=== PATIENT | male | born 1970 | race African-American/Black ===

== ENCOUNTER 2022-01-01 11:57 | Inpatient (IN) | payer BC ==
[2022-01-01 12:30] VITALS: BMI 21.4
[2022-01-01] MEDS ORDERED: NICOTINE 10 MG CARTRIDGE (INHALER) IH PRN (14:15)
[2022-01-01] MEDS ORDERED: MAGNESIUM CITRATE 300 ML BOTTLE PO PRN (14:15)
[2022-01-01] MEDS ORDERED: MAGNESIUM HYDROX 2400MG/30ML ORAL SUSPENSION 30 ML CUP PO PRN (14:15)
[2022-01-01] MEDS ORDERED: LOPERAMIDE HCL 2 MG CAPSULE PO PRN (14:15)
[2022-01-01] MEDS ORDERED: guaiFENesin 200 MG/10 ML 10 ML UNIT-DOSE CUPS PO PRN (14:15)
[2022-01-01] MEDS ORDERED: P-EPHED 60MG/TRIPROLIDI 2.5MG TABLET PO PRN (14:15)
[2022-01-01] MEDS ORDERED: MAG HYDROX/AL HYDROX/SIMETH 30 ML UNIT-DOSE CUP PO PRN (14:15)
[2022-01-01] MEDS: PRENATAL VITAMINS W/ FOLIC ACID TABLET (FP) PO SCH (23:02)
[2022-01-01] MEDS: hydrOXYzine PAMOATE 25 MG CAPSULE (FP) PO SCH ×2 (23:03→23:26)
[2022-01-01] MEDS ORDERED: TUBERCULIN PPD 5 TU/0.1ML VIAL ID ONE (23:08)
[2022-01-01] MEDS: THIAMINE HCL 100 MG TABLET (FP) PO SCH (23:26)
[2022-01-01] MEDS: MELATONIN 5 MG TABLETS PO SCH (23:26)
[2022-01-02] MEDS: hydrOXYzine PAMOATE 25 MG CAPSULE (FP) PO SCH (06:47)
[2022-01-02] MEDS: IBUPROFEN 400 MG TABLET (FP) PO PRN (07:53)
[2022-01-02] MEDS: PRENATAL VITAMINS W/ FOLIC ACID TABLET (FP) PO SCH (09:52)
[2022-01-02] MEDS: NICOTINE 7 MG/24 HOURS TOPICAL PATCH TD SCH (09:53)
[2022-01-02 10:51] LABS: HEMATOCRIT 43.3 % (35.4-49); MCH 27.5 pg (25.7-33.7); MCHC 32.3 g/dl (32.0-35.9); MEAN CELL VOLUME 84.9 fl (80-96); MEAN PLT VOLUME 7.6 fl (7.5-11.1); PLATELET COUNT 225 10^3/uL (134-434); RDW 13.8 % (11.9-15.9); WHITE BLOOD COUNT 4.9 K/mm3 (4.0-10.0)
[2022-01-02 11:08] LABS: CALCIUM 9.3 mg/dL (8.5-10.1)
[2022-01-02 11:09] LABS: ALBUMIN 3.5 g/dl (3.4-5.0); BLOOD UREA NITROGEN 9.5 mg/dL (7-18)
[2022-01-02 11:12] LABS: CREATININE 0.9 mg/dL (0.55-1.3)
[2022-01-02 11:13] LABS: BILIRUBIN,TOTAL 1.4 mg/dL (0.2-1)
[2022-01-02 11:14] LABS: TOT PROT 7.1 g/dl (6.4-8.2)
[2022-01-02 13:54] LABS: SYPHILIS W/ RPR CONF NON-REACTIVE (NONREACTIVE)
[2022-01-02 14:32] LABS: EPI CELLS 7 /uL (0-25.1); HYALINE CASTS 11 /uL (0-3.1); URINE APPEARANCE CLEAR; URINE BACTERIA 155 /uL (0-1359); URINE BILIRUBIN 1+ (NEGATIVE); URINE COLOR DK YELLOW; URINE GLUCOSE (UA) NEGATIVE (NEGATIVE); URINE KETONE TRACE (NEGATIVE); URINE LEUK ESTERASE 2+ (NEGATIVE); URINE NITRITE NEGATIVE (NEGATIVE); URINE PROTEIN TRACE (NEGATIVE); URINE RBC 5 /uL (0-23.9); URINE WBC 213 /uL (0-25.8)
[2022-01-02] MEDS: THIAMINE HCL 100 MG TABLET (FP) PO SCH (21:21)
[2022-01-02] MEDS: MELATONIN 5 MG TABLETS PO SCH (21:21)
[2022-01-03] MEDS: NICOTINE 7 MG/24 HOURS TOPICAL PATCH TD SCH (10:04)
[2022-01-03] MEDS: PRENATAL VITAMINS W/ FOLIC ACID TABLET (FP) PO SCH (10:04)
[2022-01-03] MEDS: IBUPROFEN 400 MG TABLET (FP) PO PRN (12:26)
[2022-01-03] MEDS: THIAMINE HCL 100 MG TABLET (FP) PO SCH (21:22)
[2022-01-03] MEDS: MELATONIN 5 MG TABLETS PO SCH (21:22)
[2022-01-04] MEDS: NICOTINE 7 MG/24 HOURS TOPICAL PATCH TD SCH (10:02)
[2022-01-04] MEDS: PRENATAL VITAMINS W/ FOLIC ACID TABLET (FP) PO SCH (10:02)
[2022-01-04] MEDS: LIDOCAINE 5% TOPICAL PATCH TP SCH (10:03)
[2022-01-04] MEDS: LIDOCAINE PATCH REMOVAL MC SCH (21:10)
[2022-01-04] MEDS: MELATONIN 5 MG TABLETS PO SCH (21:10)
[2022-01-04] MEDS: THIAMINE HCL 100 MG TABLET (FP) PO SCH (21:11)
[2022-01-05] MEDS: LIDOCAINE 5% TOPICAL PATCH TP SCH (09:29)
[2022-01-05] MEDS: NICOTINE 7 MG/24 HOURS TOPICAL PATCH TD SCH (09:30)
[2022-01-05] MEDS: PRENATAL VITAMINS W/ FOLIC ACID TABLET (FP) PO SCH (09:30)
[2022-01-05] MEDS: ACETAMINOPHEN 325 MG TABLET (FP) PO PRN (13:26)
[2022-01-05] MEDS: LIDOCAINE PATCH REMOVAL MC SCH (21:20)
[2022-01-05] MEDS: MELATONIN 5 MG TABLETS PO SCH (21:20)
[2022-01-05] MEDS: THIAMINE HCL 100 MG TABLET (FP) PO SCH (21:20)
[2022-01-06] MEDS: PRENATAL VITAMINS W/ FOLIC ACID TABLET (FP) PO SCH (10:12)
[2022-01-06] MEDS: NICOTINE 7 MG/24 HOURS TOPICAL PATCH TD SCH (10:13)
[2022-01-06] MEDS: LIDOCAINE 5% TOPICAL PATCH TP SCH (10:13)
[2022-01-06] MEDS: THIAMINE HCL 100 MG TABLET (FP) PO SCH (21:11)
[2022-01-06] MEDS: MELATONIN 5 MG TABLETS PO SCH (21:11)
[2022-01-06] MEDS: LIDOCAINE PATCH REMOVAL MC SCH (21:11)
[2022-01-07] MEDS: IBUPROFEN 400 MG TABLET (FP) PO PRN ×2 (09:53→18:06)
[2022-01-07] MEDS: PRENATAL VITAMINS W/ FOLIC ACID TABLET (FP) PO SCH (09:53)
[2022-01-07] MEDS: LIDOCAINE 5% TOPICAL PATCH TP SCH (09:53)
[2022-01-07] MEDS: NICOTINE 7 MG/24 HOURS TOPICAL PATCH TD SCH (09:53)
[2022-01-07] MEDS ORDERED: BACLOFEN 10 MG TABLET (FP) PO PRN (15:52)
[2022-01-07] MEDS: LIDOCAINE PATCH REMOVAL MC SCH (21:18)
[2022-01-07] MEDS: METHYL SALICYLATE/MENTHOL OINT 30 GM TUBE TP SCH (21:18)
[2022-01-07] MEDS: MELATONIN 5 MG TABLETS PO SCH (21:19)
[2022-01-07] MEDS: THIAMINE HCL 100 MG TABLET (FP) PO SCH (21:19)
[2022-01-08] MEDS: NICOTINE 7 MG/24 HOURS TOPICAL PATCH TD SCH (09:56)
[2022-01-08] MEDS: PRENATAL VITAMINS W/ FOLIC ACID TABLET (FP) PO SCH (09:56)
[2022-01-08] MEDS: LIDOCAINE 5% TOPICAL PATCH TP SCH (09:56)
[2022-01-08] MEDS: MELATONIN 5 MG TABLETS PO SCH (21:10)
[2022-01-08] MEDS: THIAMINE HCL 100 MG TABLET (FP) PO SCH (21:10)
[2022-01-08] MEDS: LIDOCAINE PATCH REMOVAL MC SCH (21:11)
[2022-01-08] MEDS: METHYL SALICYLATE/MENTHOL OINT 30 GM TUBE TP SCH (21:12)
[2022-01-09] MEDS: BACLOFEN 10 MG TABLET (FP) PO PRN (08:48)
[2022-01-09] MEDS: IBUPROFEN 400 MG TABLET (FP) PO PRN (08:49)
[2022-01-09] MEDS: PRENATAL VITAMINS W/ FOLIC ACID TABLET (FP) PO SCH (10:10)
[2022-01-09] MEDS: LIDOCAINE 5% TOPICAL PATCH TP SCH (10:10)
[2022-01-09] MEDS: NICOTINE 7 MG/24 HOURS TOPICAL PATCH TD SCH (10:11)
[2022-01-09] MEDS: LIDOCAINE PATCH REMOVAL MC SCH (21:07)
[2022-01-09] MEDS: THIAMINE HCL 100 MG TABLET (FP) PO SCH (21:07)
[2022-01-09] MEDS: METHYL SALICYLATE/MENTHOL OINT 30 GM TUBE TP SCH (21:07)
[2022-01-09] MEDS: MELATONIN 5 MG TABLETS PO SCH (21:07)
[2022-01-10] MEDS: BACLOFEN 10 MG TABLET (FP) PO PRN (08:37)
[2022-01-10] MEDS: NICOTINE 7 MG/24 HOURS TOPICAL PATCH TD SCH (09:39)
[2022-01-10] MEDS: LIDOCAINE 5% TOPICAL PATCH TP SCH (09:39)
[2022-01-10] MEDS: PRENATAL VITAMINS W/ FOLIC ACID TABLET (FP) PO SCH (09:39)
[2022-01-10] MEDS: ACETAMINOPHEN 325 MG TABLET (FP) PO PRN (21:03)
[2022-01-10] MEDS: METHYL SALICYLATE/MENTHOL OINT 30 GM TUBE TP SCH (21:04)
[2022-01-10] MEDS: LIDOCAINE PATCH REMOVAL MC SCH (21:04)
[2022-01-10] MEDS: THIAMINE HCL 100 MG TABLET (FP) PO SCH (21:04)
[2022-01-10] MEDS: SUVOREXANT 15 MG TABLET PO PRN (21:05)
[2022-01-11] MEDS: IBUPROFEN 400 MG TABLET (FP) PO PRN (07:34)
[2022-01-11] MEDS: NICOTINE 7 MG/24 HOURS TOPICAL PATCH TD SCH (10:05)
[2022-01-11] MEDS: PRENATAL VITAMINS W/ FOLIC ACID TABLET (FP) PO SCH (10:05)
[2022-01-11] MEDS: LIDOCAINE 5% TOPICAL PATCH TP SCH (10:06)
[2022-01-11] MEDS: LIDOCAINE PATCH REMOVAL MC SCH (21:19)
[2022-01-11] MEDS: THIAMINE HCL 100 MG TABLET (FP) PO SCH (21:20)
[2022-01-11] MEDS: SUVOREXANT 15 MG TABLET PO PRN (21:21)
[2022-01-11] MEDS: METHYL SALICYLATE/MENTHOL OINT 30 GM TUBE TP SCH (21:22)
[2022-01-12] MEDS: PRENATAL VITAMINS W/ FOLIC ACID TABLET (FP) PO SCH (10:09)
[2022-01-12] MEDS: BACLOFEN 10 MG TABLET (FP) PO PRN (10:10)
[2022-01-12] MEDS: LIDOCAINE 5% TOPICAL PATCH TP SCH (10:10)
[2022-01-12] MEDS: NICOTINE 7 MG/24 HOURS TOPICAL PATCH TD SCH (10:10)
[2022-01-12] MEDS: METHYL SALICYLATE/MENTHOL OINT 30 GM TUBE TP SCH (21:02)
[2022-01-12] MEDS: THIAMINE HCL 100 MG TABLET (FP) PO SCH (21:02)
[2022-01-12] MEDS: LIDOCAINE PATCH REMOVAL MC SCH (21:02)
[2022-01-12] MEDS: SUVOREXANT 15 MG TABLET PO PRN (21:03)
[2022-01-13] MEDS: PRENATAL VITAMINS W/ FOLIC ACID TABLET (FP) PO SCH (09:27)
[2022-01-13] MEDS: NICOTINE 7 MG/24 HOURS TOPICAL PATCH TD SCH (09:27)
[2022-01-13] MEDS: LIDOCAINE 5% TOPICAL PATCH TP SCH (09:28)
[2022-01-13] MEDS: BACLOFEN 10 MG TABLET (FP) PO PRN (10:53)
[2022-01-13] MEDS: ACETAMINOPHEN 325 MG TABLET (FP) PO PRN ×2 (10:54→17:48)
[2022-01-13] MEDS: LIDOCAINE PATCH REMOVAL MC SCH (21:01)
[2022-01-13] MEDS: THIAMINE HCL 100 MG TABLET (FP) PO SCH (21:01)
[2022-01-13] MEDS: SUVOREXANT 15 MG TABLET PO PRN (21:02)
[2022-01-13] MEDS: METHYL SALICYLATE/MENTHOL OINT 30 GM TUBE TP SCH (21:03)
[2022-01-14] MEDS: IBUPROFEN 400 MG TABLET (FP) PO PRN ×2 (03:36→16:35)
[2022-01-14] MEDS: PRENATAL VITAMINS W/ FOLIC ACID TABLET (FP) PO SCH (10:03)
[2022-01-14] MEDS: NICOTINE 7 MG/24 HOURS TOPICAL PATCH TD SCH (10:04)
[2022-01-14] MEDS: LIDOCAINE 5% TOPICAL PATCH TP SCH (10:04)
[2022-01-14] MEDS: BACLOFEN 10 MG TABLET (FP) PO PRN (12:44)
[2022-01-14] MEDS: THIAMINE HCL 100 MG TABLET (FP) PO SCH (21:14)
[2022-01-14] MEDS: MELATONIN 5 MG TABLETS PO SCH (21:14)
[2022-01-14] MEDS: LIDOCAINE PATCH REMOVAL MC SCH (21:15)
[2022-01-14] MEDS: METHYL SALICYLATE/MENTHOL OINT 30 GM TUBE TP SCH (21:15)
[2022-01-14] MEDS: SUVOREXANT 15 MG TABLET PO PRN (21:15)
[2022-01-15] MEDS: ACETAMINOPHEN 325 MG TABLET (FP) PO PRN ×2 (03:31→18:38)
[2022-01-15] MEDS ORDERED: COLLOIDAL OATMEAL 1 BAR EACH TP PRN (09:16)
[2022-01-15] MEDS: IBUPROFEN 400 MG TABLET (FP) PO PRN (09:51)
[2022-01-15] MEDS: NICOTINE 7 MG/24 HOURS TOPICAL PATCH TD SCH (09:52)
[2022-01-15] MEDS: LIDOCAINE 5% TOPICAL PATCH TP SCH (09:52)
[2022-01-15] MEDS: PRENATAL VITAMINS W/ FOLIC ACID TABLET (FP) PO SCH (09:52)
[2022-01-15] MEDS: SUVOREXANT 15 MG TABLET PO PRN (21:15)
[2022-01-15] MEDS: LIDOCAINE PATCH REMOVAL MC SCH (21:15)
[2022-01-15] MEDS: THIAMINE HCL 100 MG TABLET (FP) PO SCH (21:15)
[2022-01-15] MEDS: METHYL SALICYLATE/MENTHOL OINT 30 GM TUBE TP SCH (21:16)
[2022-01-16] MEDS: PRENATAL VITAMINS W/ FOLIC ACID TABLET (FP) PO SCH (09:44)
[2022-01-16] MEDS: NICOTINE 7 MG/24 HOURS TOPICAL PATCH TD SCH (09:45)
[2022-01-16] MEDS: LIDOCAINE 5% TOPICAL PATCH TP SCH (09:45)
[2022-01-16] MEDS: LIDOCAINE PATCH REMOVAL MC SCH (21:05)
[2022-01-16] MEDS: METHYL SALICYLATE/MENTHOL OINT 30 GM TUBE TP SCH (21:05)
[2022-01-16] MEDS: THIAMINE HCL 100 MG TABLET (FP) PO SCH (21:05)
[2022-01-16] MEDS: SUVOREXANT 15 MG TABLET PO PRN (21:06)
[2022-01-17] MEDS: PRENATAL VITAMINS W/ FOLIC ACID TABLET (FP) PO SCH (10:06)
[2022-01-17] MEDS: LIDOCAINE 5% TOPICAL PATCH TP SCH (10:07)
[2022-01-17] MEDS: NICOTINE 7 MG/24 HOURS TOPICAL PATCH TD SCH (10:07)
[2022-01-17] MEDS: THIAMINE HCL 100 MG TABLET (FP) PO SCH (21:14)
[2022-01-17] MEDS: LIDOCAINE PATCH REMOVAL MC SCH (21:15)
[2022-01-17] MEDS: METHYL SALICYLATE/MENTHOL OINT 30 GM TUBE TP SCH (21:15)
[2022-01-17] MEDS: SUVOREXANT 15 MG TABLET PO PRN (21:17)
[2022-01-18] MEDS: PRENATAL VITAMINS W/ FOLIC ACID TABLET (FP) PO SCH (09:35)
[2022-01-18] MEDS: LIDOCAINE 5% TOPICAL PATCH TP SCH (09:36)
[2022-01-18] MEDS: NICOTINE 7 MG/24 HOURS TOPICAL PATCH TD SCH (09:36)
[2022-01-18] MEDS: LIDOCAINE PATCH REMOVAL MC SCH (21:14)
[2022-01-18] MEDS: THIAMINE HCL 100 MG TABLET (FP) PO SCH (21:14)
[2022-01-18] MEDS: METHYL SALICYLATE/MENTHOL OINT 30 GM TUBE TP SCH (22:15)
[2022-01-19] MEDS: PRENATAL VITAMINS W/ FOLIC ACID TABLET (FP) PO SCH (09:31)
[2022-01-19] MEDS: LIDOCAINE 5% TOPICAL PATCH TP SCH (09:31)
[2022-01-19] MEDS: NICOTINE 7 MG/24 HOURS TOPICAL PATCH TD SCH (09:31)
[2022-01-19] MEDS: SUVOREXANT 15 MG TABLET PO PRN (22:18)
[2022-01-19] MEDS: THIAMINE HCL 100 MG TABLET (FP) PO SCH (22:19)
[2022-01-19] MEDS: METHYL SALICYLATE/MENTHOL OINT 30 GM TUBE TP SCH (22:20)
[2022-01-19] MEDS: LIDOCAINE PATCH REMOVAL MC SCH (22:20)
[2022-01-20] MEDS: NICOTINE 7 MG/24 HOURS TOPICAL PATCH TD SCH (10:08)
[2022-01-20] MEDS: LIDOCAINE 5% TOPICAL PATCH TP SCH (10:08)
[2022-01-20] MEDS: PRENATAL VITAMINS W/ FOLIC ACID TABLET (FP) PO SCH (10:08)
[2022-01-20] MEDS: ACETAMINOPHEN 325 MG TABLET (FP) PO PRN (14:12)
[2022-01-20] MEDS: LIDOCAINE VISCOUS 2% ORAL/TOP 15 ML UNIT-DOSE CUP MM PRN (18:45)
[2022-01-20] MEDS: THIAMINE HCL 100 MG TABLET (FP) PO SCH (21:20)
[2022-01-20] MEDS: IBUPROFEN 400 MG TABLET (FP) PO PRN (21:21)
[2022-01-20] MEDS: hydrOXYzine PAMOATE 25 MG CAPSULE (FP) PO PRN (21:22)
[2022-01-20] MEDS: LIDOCAINE PATCH REMOVAL MC SCH (22:18)
[2022-01-20] MEDS: METHYL SALICYLATE/MENTHOL OINT 30 GM TUBE TP SCH (22:18)
[2022-01-21] MEDS: LIDOCAINE 5% TOPICAL PATCH TP SCH (09:42)
[2022-01-21] MEDS: PRENATAL VITAMINS W/ FOLIC ACID TABLET (FP) PO SCH (09:42)
[2022-01-21] MEDS: NICOTINE 7 MG/24 HOURS TOPICAL PATCH TD SCH (09:42)
[2022-01-21] MEDS: LIDOCAINE VISCOUS 2% ORAL/TOP 15 ML UNIT-DOSE CUP MM PRN ×2 (09:44→21:21)
[2022-01-21] MEDS: THIAMINE HCL 100 MG TABLET (FP) PO SCH (21:18)
[2022-01-21] MEDS: METHYL SALICYLATE/MENTHOL OINT 30 GM TUBE TP SCH (21:18)
[2022-01-21] MEDS: LIDOCAINE PATCH REMOVAL MC SCH (21:19)
[2022-01-21] MEDS: hydrOXYzine PAMOATE 25 MG CAPSULE (FP) PO PRN (21:21)
[2022-01-22 06:35] VITALS: BP 112/74; PULSE 65; TEMP 97.8
[2022-01-22] MEDS: IBUPROFEN 400 MG TABLET (FP) PO PRN (06:48)
[2022-01-22] MEDS: PRENATAL VITAMINS W/ FOLIC ACID TABLET (FP) PO SCH (09:23)
[2022-01-22] MEDS: NICOTINE 7 MG/24 HOURS TOPICAL PATCH TD SCH (09:24)
[2022-01-22] MEDS: LIDOCAINE 5% TOPICAL PATCH TP SCH (09:24)
== END 2022-01-22 09:30 | disposition home or self-care (01) | DRG 772 ==
LOC: YASAS 11:57 → Y3E 22:57
PROVIDERS: ADMIT Allergy & Immunology; ATTEND Psychiatry & Neurology Pain Medicine
PROC: HZ42ZZZ Group Counseling for Substance Abuse Treatment, Cognitive-Behavioral (ICD-10-PCS; principal; 2022-01-01)
DX: F10.20 Alcohol dependence, uncomplicated (principal); F10.282 Alcohol dependence with alcohol-induced sleep disorder; G47.00 Insomnia, unspecified; K04.7 Periapical abscess without sinus; K08.9 Disorder of teeth and supporting structures, unspecified; M54.59 Other low back pain; G89.29 Other chronic pain; Z56.0 Unemployment, unspecified; Z59.00 Homelessness unspecified
CPT/HCPCS: 36415; 71046-TC-FY; 80053; 81003; 82962; 85027; 86780; 86803; 93005; 93010; C9803-CS; J0475; U0003; U0005